=== PATIENT | male | born 1975 | race Caucasian/White ===

== ENCOUNTER 2019-02-14 04:56 | Emergency (ER) | payer BC ==
[2019-02-14] MEDS ORDERED: methylPREDNISolone Sodium Succinate 125 MG/2 ML SDV IVPUSH ONE (05:22)
--- NOTE | 2019-02-14 05:22 | EDM.PDOC ---
<Keyla Lewis - Last Filed: 02/14/19 06:46> ED HPI GENERAL MEDICAL PROBLEM - General Chief Complaint: Diabetic Complaint Stated Complaint: DOESN'T FEEL WELL Time Seen by Provider: 02/14/19 05:13 Source of Information: Reports: Patient History Limitations: Reports: No Limitations - History of Present Illness INITIAL COMMENTS - FREE TEXT/NARRATIVE: pt was at [facility] and he woke up feeling like his bs was low. He drank 2 cans of mountain dew and was able to get his bs. His bp was low when the medics looked at him. Onset: Today, Sudden, Other (pt started and he was itching all over. He then thought his bs was low and he drank an can and ahalf of mountain dew. His blood sugar went up but his bs was low and he went from itching all over to shaking chills. ) Duration: Hour(s): Location: Reports: Generalized Associated Symptoms: Reports: Other ( chilling. ) denies pain Pain Score (Numeric/FACES): 0 - Related Data Allergies Allergy/AdvReac Type Severity Reaction Status Date / Time No Known Allergies Allergy Verified 02/14/19 05:01 Home Meds: Home Meds Lisinopril 10 mg PO DAILY 02/14/19 [History] metFORMIN [Glucophage] 500 mg PO BIDMEALS 02/14/19 [History] Past Medical History Cardiovascular History: Reports: Hypertension Endocrine/Metabolic History: Reports: Diabetes, Type II - Infectious Disease History Infectious Disease History: Reports: Chicken Pox - Past Surgical History HEENT Surgical History: Reports: Adenoidectomy, Tonsillectomy GI Surgical History: Reports: Appendectomy Social & Family History - Tobacco Use Smoking Status *Q: Never Smoker - Caffeine Use Caffeine Use: Reports: Soda - Recreational Drug Use Recreational Drug Use: No ED ROS GENERAL - Review of Systems Review Of Systems: See Below Constitutional: Reports: Chills HEENT: Reports: No Symptoms Respiratory: Reports: No Symptoms Cardiovascular: Reports: No Symptoms Endocrine: Reports: No Symptoms GI/Abdominal: Reports: No Symptoms : Reports: No Symptoms Musculoskeletal: Reports: No Symptoms Skin: Reports: Other ( total body rash-- redness. ) Neurological: Reports: No Symptoms Psychiatric: Reports: No Symptoms ED EXAM GENERAL NO PERIP PULSE - Physical Exam Text/Narrative:: pt has a r He is shaking now. red rash everywhere. [place] the [place]. He had alot of insect bites and he had one tick bite. He was not aware of any bites during the nite. He no longer feels itchy. Exam Limited By: No Limitations General Appearance: Alert, Mild Distress, Severe Distress Ears: Normal TMs Nose: Normal Inspection Throat/Mouth: Other ( no swelling. ) Head: Atraumatic Neck: Normal Inspection Respiratory/Chest: No Respiratory Distress Cardiovascular: Regular Rate, Rhythm, Tachycardia GI/Abdominal: Soft, Non-Tender (Male) Exam: Deferred Rectal (Males) Exam: Deferred Back Exam: Normal Inspection Extremities: Normal Inspection Neurological: Alert, Oriented, Normal Cognition Psychiatric: Normal Affect Skin Exam: Erythema, Rash Course - Vital Signs Last Recorded V/S: Last Vital Signs Temp 96.8 F 02/14/19 06:23 Pulse 101 H 02/14/19 06:23 Resp 22 H 02/14/19 06:23 BP 133/82 02/14/19 06:23 Pulse Ox 99 02/14/19 06:23 - Orders/Labs/Meds Orders: Active Orders 24 hr Category Date Time Status CULTURE BLOOD [BC] Urgent Lab 02/14/19 06:05 Received CULTURE BLOOD [BC] Urgent Lab 02/14/19 06:10 Received UA W/MICROSCOPIC [URIN] Urgent Lab 02/14/19 05:13 Ordered Blood Culture x2 Reflex Set [OM.PC] Urgent Oth 02/14/19 05:44 Ordered Labs: Laboratory Tests 02/14/19 02/14/19 02/14/19 Range/Units 05:13 05:37 05:46 WBC 30.3 H* (4.5-11.0) K/uL RBC 5.35 (4.30-5.90) M/uL Hgb 14.4 (12.0-15.0) g/dL Hct 45.1 (40.0-54.0) % MCV 84 (80-98) fL MCH 27 (27-31) pg MCHC 32 (32-36) % Plt Count 334 (150-400) K/uL Neut % (Auto) 83 H (36-66) % Lymph % (Auto) 11 L (24-44) % Alpine % (Auto) 5 (2-6) % Eos % (Auto) 1 L (2-4) % Baso % (Auto) 0 (0-1) % Sodium 139 L (140-148) mmol/L Potassium 5.1 (3.6-5.2) mmol/L Chloride 103 (100-108) mmol/L Carbon Dioxide 24 (21-32) mmol/L Anion Gap 17.1 H (5.0-14.0) mmol/L BUN 21 H (7-18) mg/dL Creatinine 1.6 H (0.8-1.3) mg/dL Est Cr Clr Drug Dosing 54.51 mL/min Estimated GFR (MDRD) 47 L (>60) Glucose 287 H (74-106) mg/dL Lactic Acid 5.2 H (0.4-2.0) mmol/L Calcium 8.9 (8.5-10.1) mg/dL Total Bilirubin 0.3 (0.2-1.0) mg/dL AST 21 (15-37) U/L ALT 36 (12-78) U/L Alkaline Phosphatase 54 (46-116) U/L Total Protein 6.4 (6.4-8.2) g/dL Albumin 3.4 (3.4-5.0) g/dL Globulin 3.0 (2.3-3.5) g/dL Albumin/Globulin Ratio 1.1 L (1.2-2.2) Meds: Medications Discontinued Medications Generic Name Dose Route Start Last Admin Trade Name Freq PRN Reason Stop Dose Admin Diphenhydramine HCl 50 mg 02/14/19 05:23 02/14/19 05:31 Benadryl IVPUSH 02/14/19 05:24 50 mg ONETIME ONE Administration Epinephrine HCl 0.3 mg 02/14/19 05:23 02/14/19 05:33 Adrenalin SUBCUT 02/14/19 05:24 Not Given ONETIME ONE Epinephrine HCl 0.2 mg 02/14/19 05:25 02/14/19 05:29 Adrenalin SUBCUT 02/14/19 05:26 0.2 mg ONETIME ONE Administration Sodium Chloride 1,000 mls @ 999 mls/hr 02/14/19 05:30 02/14/19 05:31 Normal Saline IV 999 mls/hr ASDIRECTED SHAYLEE Administration Sodium Chloride 1,000 mls @ 999 mls/hr 02/14/19 06:00 02/14/19 06:13 Normal Saline IV 999 mls/hr ASDIRECTED SHAYLEE Administration Sodium Chloride 1,000 mls @ 999 mls/hr 02/14/19 06:45 Normal Saline IV ASDIRECTED SHAYLEE Methylprednisolone Sodium Succinate 125 mg 02/14/19 05:22 02/14/19 05:28 Solu-Medrol IVPUSH 02/14/19 05:23 125 mg ONETIME ONE Administration - Re-Assessments/Exams Free Text/Narrative Re-Assessment/Exam: 02/14/19 05:49 pt felt shakey and he drank 2 cans of mountain dew when he got to the medics his bs was in the 140 range. He still is very shakey, His temp is low. He felt well when he went to bed. He woke up itching all over. He states he then got very sweaty. He then began to shake . He had a bP of 70 systolic when he got to the medics. He had a bp in the 90s when he was first seen. It sounded like an allergic reaction to start with. On arrival he as covered with a red rash. 02/14/19 05:52 pt was given a small dose of epinephrine, solumedrol and benadryl. He was found to have a 30,000 wbc. He has better bp at this time of 108 systolic. 02/14/19 06:17 02/14/19 06:40 PT FEELS MUCH BVETTER. hIS RASH IS GONE 02/14/19 06:46 tHIS PT WILL BE GIVEN A 3RD LITER OF FLUID. hE STILL HAS NOT VOIDED. hE IS FEELING MUCH BETTER. hIS TEMP IS STAYING DOWN. hI CREATNINE IS HIGH. hIS BS 284. Departure - Departure Disposition: Home, Self-Care 01 Condition: Fair Clinical Impression: Allergic reaction, Dehydration, Renal insufficiency, Hypotension, Elevated lactic acid level, Elevated WBC count - Discharge Information Instructions: Allergies, Adult, [id number] Referrals: PCP,None [Primary Care Provider] - Forms: ED Department Discharge Care Plan Goals: Increase diet and activity as tolerated. Recheck over the next 1-2 weeks if any symptoms develop such as fever, rash or joint pains. Return sooner if he developed other concerns. <Golden Corral - Last Filed: 02/14/19 09:35> ED EXAM GENERAL NO PERIP PULSE - Physical Exam Exam: See Below Course - Re-Assessments/Exams Free Text/Narrative Re-Assessment/Exam: 02/14/19 07:12 Patient evaluated and treated by Dr. Lewis. After significant rehydration he felt much better, symptoms had resolved. In reviewing the timing of his labs. His CBC was checked right after the Solu-Medrol and epinephrine was given which indicates demargination of white cells. It seems this patient did have some type of an allergic reaction which has resolved, he is comfortable being and prefers to be discharged. Departure - Departure Time of Disposition: 07:37
[2019-02-14] MEDS ORDERED: EPINEPHrine 1 MG/ML SDV SUBCUT ONE ×2 (05:23→05:25)
[2019-02-14] MEDS ORDERED: diphenhydrAMINE 50 MG/ML SDV IVPUSH ONE (05:23)
[2019-02-14] MEDS ORDERED: Sodium Chloride 0.9% 1,000 ML IV SCH ×3 (05:30→06:45)
--- NOTE | 2019-02-14 06:50 | CRLCR ---
INDICATION: sob elevated wbc Single AP view Findings: The lungs are clear. Pulmonary vascularity, mediastinum and cardiac silhouette are within normal limits. No effusions and no pneumothorax. Osseous structures appear unremarkable. Impression: No evidence of acute cardiopulmonary disease. Dictated by: Johnny Burton MD @ 02/14/2019 06:48:26 (Electronically Signed)
== END 2019-02-14 07:30 | disposition home or self-care (01) ==
LOC: JP.ED 04:56
DX: T78.1XXA Other adverse food reactions, not elsewhere classified, initial encounter (principal); N28.9 Disorder of kidney and ureter, unspecified; E86.0 Dehydration; I95.9 Hypotension, unspecified; R74.0 Nonspecific elevation of levels of transaminase and lactic acid dehydrogenase [LDH]; D72.829 Elevated white blood cell count, unspecified; E11.9 Type 2 diabetes mellitus without complications; Z79.84 Long term (current) use of oral hypoglycemic drugs; Z79.899 Other long term (current) drug therapy
CPT/HCPCS: 36415; 71045; 80053; 82962; 83605; 85025; 87040; 96361; 96372; 96374; 96375; 99284; J0171; J1200; J2930; J7030